=== PATIENT | female | born 1985 | race American Indian/Alaskan Native ===

== ENCOUNTER 2019-05-05 18:09 | Emergency (ER) | payer BC ==
--- NOTE | 2019-05-05 18:32 | Event Note ---
ED Screening Note Date of service: 05/05/19 Time: 18:30 ED Screening Note: 33 y/o female injured right foot and ankle her right heard something pop. This initial assessment/diagnostic orders/clinical plan/treatment(s) is/are subject to change based on patients health status, clinical progression and re- assessment by fellow clinical providers in the ED. Further treatment and workup at subsequent clinical providers discretion. Patient/guardian urged not to elope from the ED as their condition may be serious if not clinically assessed and managed. Initial orders include:
--- NOTE | 2019-05-05 19:55 | Emergency Department Report ---
ED Lower Extremity HPI - General Chief Complaint: Extremity Injury, Lower Stated Complaint: RT FOOT INJURY Time Seen by Provider: 05/05/19 18:26 Source: patient, family Mode of arrival: Wheelchair Limitations: No Limitations - History of Present Illness Initial Comments: This is a 33-year-old female here reported that she is having right-sided pain today. She says she stepped in a ditch and heard a pop. And pain in her right foot and right ankle. She said this happened about 10 AM this morning and it progressively gotten worse with swelling and pain throughout the day. Pain at present is 5/10. Denies any numbness or tingling and no medication taken prior to coming to emergency room. Pain is worse with movement and better with rest MD Complaint: ankle injury, foot injury -: This morning Injury: Knee: Right, Ankle: Right Type of Injury: other (obtained to edition her) Place: street/outdoors Severity: moderate Severity scale (0 -10): 5 Improves With: cold therapy, rest Worsens With: weight bearing, movement, palpation Context: walking Associated Symptoms: snap/pop sensation, swelling, unable to bear weight. denies: numbness, tingling Treatments Prior to Arrival: cold therapy - Related Data Previous Rx's Medication Instructions Recorded Last Taken Type HYDROcodone/APAP 5-325 [Dema 1 each PO Q6HR PRN #9 tablet 05/06/19 Unknown Rx 5/325] Ibuprofen [Motrin 800 MG tab] 800 mg PO Q8HR PRN #12 tablet 05/06/19 Unknown Rx Allergies Allergy/AdvReac Type Severity Reaction Status Date / Time No Known Allergies Allergy Unverified 05/05/19 18:11 ED Review of Systems ROS: Stated complaint: RT FOOT INJURY Other details as noted in HPI Constitutional: denies: chills, fever Respiratory: denies: cough, shortness of breath, wheezing Cardiovascular: denies: chest pain, palpitations, edema, syncope Gastrointestinal: denies: nausea, vomiting Musculoskeletal: joint swelling, arthralgia. denies: back pain Skin: denies: rash Neurological: denies: headache, numbness, paresthesias ED Past Medical Hx - Past Medical History Previous Medical History?: No - Surgical History Past Surgical History?: Yes Hx Cholecystectomy: Yes Additional Surgical History: C/S - Family History Family history: hypertension - Social History Smoking Status: Never Smoker Substance Use Type: Alcohol - Medications Home Medications: Home Medications Medication Instructions Recorded Confirmed Last Taken Type HYDROcodone/APAP 5-325 [Dema 1 each PO Q6HR PRN #9 tablet 05/06/19 Unknown Rx 5/325] Ibuprofen [Motrin 800 MG tab] 800 mg PO Q8HR PRN #12 tablet 05/06/19 Unknown Rx ED Physical Exam - General Limitations: No Limitations General appearance: alert, in no apparent distress - Head Head exam: Present: atraumatic, normocephalic - ENT ENT exam: Present: normal exam, normal orophraynx, mucous membranes moist - Neck Neck exam: Present: normal inspection, full ROM. Absent: tenderness - Respiratory Respiratory exam: Present: normal lung sounds bilaterally. Absent: respiratory distress, chest wall tenderness - Cardiovascular Cardiovascular Exam: Present: regular rate, normal rhythm, normal heart sounds - Extremities Exam Extremities exam: Present: tenderness, normal capillary refill, pedal edema, joint swelling. Absent: normal inspection, full ROM, calf tenderness - Expanded Lower Extremity Exam Right Hip exam: Present: normal inspection, full ROM, pelvic stability. Absent: tenderness Upper Leg exam: Present: normal inspection, full ROM. Absent: tenderness Knee exam: Present: normal inspection, full ROM. Absent: tenderness, swelling Lower Leg exam: Present: normal inspection, full ROM. Absent: tenderness Ankle exam: Present: full ROM (motion), tenderness (minimal tenderness to right anterior ankle), swelling (minimal swelling and). Absent: normal inspection, abrasion, laceration, ecchymosis, deformity, crepidus, dislocation, erythema, anterior draw sign Foot/Toe exam: Present: tenderness, swelling. Absent: normal inspection, full ROM, abrasion, laceration, ecchymosis, deformity, crepidus, dislocation, erythema, amputation, puncture wound, foreign body, calcaneal tenderness, tenderness at base of 5th metatarsal, nail avulsion, subungual hematoma Neuro vascular tendon exam: Present: no vascular compromise Gait: Positive: antalgic - Back Exam Back exam: Present: normal inspection, full ROM. Absent: tenderness, paraspinal tenderness, vertebral tenderness - Neurological Exam Neurological exam: Present: alert, oriented X3, reflexes normal - Psychiatric Psychiatric exam: Present: normal affect, normal mood - Skin Skin exam: Present: warm, dry, intact, normal color. Absent: rash ED Course Vital Signs 05/05/19 18:26 Temperature 98.7 F Pulse Rate 93 H Respiratory 18 Rate Blood Pressure 145/61 O2 Sat by Pulse 100 Oximetry - Reevaluation(s) Reevaluation #1: 05/06/19 00:44 Patient given hydrocodone 7.5/325 mg one tablet by mouth along with motion angina. Emergency room which relieved her pain. I discussed this patient's x- ray with DR Beth Hall and it was agreed upon the patient will be placed in posterior splint and referred to orthopedic doctor. Reevaluation #2: 05/06/19 00:46 Patient stable in no acute distress. Status post posterior splint with good color, sensation temperature and movement at toes - Orthopedic Splinting/Casting Injury #1 Side: right Lower Extremity Injury Location: ankle, foot Lower Extremity Immobilizer: posterior splint Other Orthopedic Equipment: crutches ED Lower Extremity MDM - Radiology Data Radiology results: report reviewed Findings [address] [address] XRay Report Signed Patient: BRIDGER PETER MR#: [id number] : 1985 Acct:[id number] Age/Sex: 33 / F ADM Date: 05/05/19 Loc: ED Attending Dr: Ordering Physician: NAZIA COOPER Date of Service: 05/05/19 Procedure(s): XR foot 2V RT Accession Number(s): [id number] cc: NAZIA COOPER Fluoro Time In Minutes: PROCEDURE: XR FOOT 2V RT HISTORY: foot pain and swelling heard something pop FINDINGS: AP and lateral views of the right foot were acquired. There is an acute oblique nondisplaced fracture of the diaphysis of the fifth metatarsal. The remainder of the foot appears intact. IMPRESSION: Acute oblique nondisplaced fracture of fifth metatarsal This document is electronically signed by Sotero Willingham MD., May 05 2019 08:04:38 PM ET Transcribed By: SCOTT Dictated By: SOTERO WILLINGHAM MD Electronically Authenticated By: SOTERO WILLINGHAM MD Signed Date/Time: 05/05/192005 DD/ 35 TD/TT: 05/05/191936 Findings [address] [place] [address] XRay Report Signed Patient: BRIDGER PETER MR#: [id number] : 1985 Acct:[id number] Age/Sex: 33 / F ADM Date: 05/05/19 Loc: ED Attending Dr: Ordering Physician: NAZIA COOPER Date of Service: 05/05/19 Procedure(s): XR ankle 2V RT Accession Number(s): [id number] cc: NAZIA COOPER Fluoro Time In Minutes: PROCEDURE: Right ankle. TECHNIQUE: AP and lateral views. HISTORY: Ankle pain and swelling. COMPARISONS: None. FINDINGS: The bones appear intact without fracture or dislocation. The joint spaces appear normal. There is soft tissue swelling overlying the medial malleolus. IMPRESSION: Soft tissue swelling without fracture. This document is electronically signed by Jeremy Starks MD., May 05 2019 08:38:47 PM ET Transcribed By: MRM Dictated By: JEREMY STARKS MD Electronically Authenticated By: JEREMY STARKS MD Signed Date/Time: 05/05/192040 DD/ 36 TD/TT: 05/05/191936 - Medical Decision Making This is a 33-year-old female here status post right foot injury and she had x- ray of right foot and ankle which shows that she has fracture to the metatarsal area of right foot without any ankle abnormalities. She does have full range of motion to her ankle with minimal pain and limited range of motion to right foot with swelling due to pain from injury. Patient was given hydrocodone 7.5/325 mg 1 tablet when necessary emergency room along with Motrin and give her a gram by mouth which relieved her pain. Patient states placed in posterior splint to right lower extremity and post splint check this was normal. Patient's referred to orthopedic doctor and also to follow up with her primary care physician and I discussed with her that if symptoms worsens to return to emergency room. She was understanding of diagnosis, treatment plan and medications and discharged home with her family member in stable condition - Differential Diagnosis FX, dislocation, sprain, MSK pain Critical care attestation.: If time is entered above; I have spent that time in minutes in the direct care of this critically ill patient, excluding procedure time. ED Disposition Clinical Impression: Foot fracture, right Qualifiers: Encounter type: initial encounter Fracture type: closed Qualified Code(s): S92.901A - Unspecified fracture of right foot, initial encounter for closed fracture Pain, joint, ankle and foot Qualifiers: Laterality: right Qualified Code(s): M25.571 - Pain in right ankle and joints of right foot Disposition: TO HOME OR SELFCARE Is pt being admited?: No Does the pt Need Aspirin: No Condition: Stable Instructions: Arthralgia (ED), Foot Fracture in Adults (ED), Splint Care (ED) Additional Instructions: Please follow up with orthopedic doctor as instructed. See discharge instructions for rice therapy and splint care Pain medication as prescribed. Take Tylenol No. 3 for severe pain and Motrin for mild to moderate pain If condition worsens, return to emergency room. Prescriptions: Ibuprofen [Motrin 800 MG tab] 800 mg PO Q8HR PRN #12 tablet PRN Reason: mild to moderate pain HYDROcodone/APAP 5-325 [Dema 5/325] 1 each PO Q6HR PRN #9 tablet PRN Reason: severe pain [facility] [Referring[facility] - 05/07/19 ELIGIO DAVILA MD [Staff Physician] - 05/08/19 Forms: Work/School Release Form(ED)
--- NOTE | 2019-05-05 20:06 | XRay Report ---
PROCEDURE: XR FOOT 2V RT HISTORY: foot pain and swelling heard something pop FINDINGS: AP and lateral views of the right foot were acquired. There is an acute oblique nondisplace d fracture of the diaphysis of the fifth metatarsal. The remainder of the foot appears intact. IMPRESSION: Acute oblique nondisplaced fracture of fifth metatarsal This document is electronically signed by Sotero Willingham MD., May 05 2019 08:04:38 PM ET
--- NOTE | 2019-05-05 20:41 | XRay Report ---
PROCEDURE: Right ankle. TECHNIQUE: AP and lateral views. HISTORY: Ankle pain and swelling. COMPARISONS: None. FINDINGS: The bones appear intact without fracture or dislocation. The joint spaces appear normal. There is sof t tissue swelling overlying the medial malleolus. IMPRESSION: Soft tissue swelling without fracture. This document is electronically signed by Jeremy Trivedi MD., May 05 2019 08:38:47 PM ET
[2019-05-05] MEDS ORDERED: NORCO 7.5/325 PO ONE (23:01)
[2019-05-05] MEDS ORDERED: IBUPROFEN PO ONE (23:01)
[2019-05-06 01:31] VITALS: BP 120/87
== END 2019-05-06 01:19 | disposition home or self-care (01) ==
LOC: ED 18:09
DX: S92.354A Nondisplaced fracture of fifth metatarsal bone, right foot, initial encounter for closed fracture (principal); Z90.49 Acquired absence of other specified parts of digestive tract; Z79.899 Other long term (current) drug therapy; W17.2XXA Fall into hole, initial encounter; Y93.89 Activity, other specified; Y92.488 Other paved roadways as the place of occurrence of the external cause; Y99.8 Other external cause status
CPT/HCPCS: 99283